=== PATIENT | female | born 1940 | race Caucasian/White ===

== ENCOUNTER → 2025-01-10 10:03 | Outpatient (CLI) | payer MEDICARE, OTHER, SELFPAY ==
--- NOTE | 2025-01-10 10:09 | DI.NM.S_ITS ---
PROCEDURE: NM BONE SCAN LIMITED AREA RADIOPHARMACEUTICAL: 21.3 mCi Tc-99m MDP IV. INDICATIONS: Hyperstosis TECHNIQUE: Multiple delayed bone scintigrams of the body part of interest were obtained approximately 3 hours after intravenous injection of Tc-99m MDP. COMPARISON: None. 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 Additional focus of radiotracer uptake in the right temporal bone, indeterminate. Correlation with CT or MRI of the head is recommended, if not available. Dictated by: Stevie Urena M.D. on 01/10/2025 at 16:15 Approved by: Stevie Urena M.D. on 01/10/2025 at 16:16
== END ==
PROVIDERS: PCP Registered Nurse; Referring Provider Registered Nurse; Visit Provider Registered Nurse
DX: M85.2 Hyperostosis of skull (principal); R42 Dizziness and giddiness; R51.9 Headache, unspecified
CPT/HCPCS: 78300; A9503